=== PATIENT | female | born 1995 | race Caucasian/White ===

== ENCOUNTER → 2018-01-02 14:21 | Outpatient (CLI) | payer OTHER, SELFPAY ==
--- NOTE | 2018-01-02 14:25 | US_ITS ---
US breast LT complete COMPARISON: None HISTORY: Possible palpable lump 2:00 position left breast TECHNIQUE: Ultrasound survey left breast with particular attention upper outer quadrant FINDINGS: There is a diffusely heterogenic echogenicity of the breast parenchyma not unexpected in a young lady of this age. There is no cystic or solid lesions identified and there are no findings to suggest architectural distortion. There is a small normal-appearing node in the axilla. IMPRESSION: Heterogenic echogenicity consistent with prominent fibrocystic change and not unexpected in a young lady and with no suspicious lesion seen BI-RADS Category: 1 Negative RECOMMENDED FOLLOW-UP: 1YR - 1 YEAR FOLLOW-UP
== END ==
PROVIDERS: Family Provider Nurse Practitioner Family; PCP Nurse Practitioner Family; Visit Provider Internal Medicine Adolescent Medicine
DX: N63.20 Unspecified lump in the left breast, unspecified quadrant (principal)
CPT/HCPCS: 76641

== ENCOUNTER → 2020-05-03 09:23 | Outpatient (CLI) | payer OTHER, SELFPAY ==
[2020-05-03 13:38] LABS: Basophils # 0.1 K/mm3 (0-0.2); Basophils % 1.4 % (0.1-2.0); Eosinophils # 0.2 K/mm3 (0.0-0.4); Eosinophils % 2.1 % (0.1-12.0); Hematocrit 35.2 % (37.0-47.0); Hemoglobin 11.8 g/dL (12.2-16.2); Lymphocytes # 2.3 K/mm3 (0.7-4.5); Lymphocytes % 27.3 % (10-50); Mean Corpuscular HGB Conc 33.5 g/dL (31.8-35.4); Mean Corpuscular Hemoglobin 31.6 pg (27.0-31.2); Mean Corpuscular Volume 94.3 fl (81-99); Mean Platelet Volume 8.6 fl (7.4-10.4); Monocytes # 0.5 K/mm3 (0.1-1.0); Monocytes % 5.4 % (1.7-9.3); Neutrophils # 5.5 K/mm3 (1.8-7.8); Neutrophils % 63.8 % (37.0-80.0); Platelet Count 514 K/mm3 (142-424); Red Blood Count 3.73 M/mm3 (4.20-5.40); Red Cell Distribution Width 13.4 % (11.5-17.5); White Blood Count 8.5 K/mm3 (4.8-10.8)
== END ==
PROVIDERS: PCP Nurse Practitioner Family; Visit Provider Physician Assistant Medical
DX: D64.9 Anemia, unspecified (principal)
CPT/HCPCS: 36415; 85025